=== PATIENT | male | born 1995 | race Caucasian/White ===

== ENCOUNTER 2019-10-11 18:45 | Emergency (ER) | payer MEDICAID, SELFPAY ==
[2019-10-11 18:53] VITALS: BP 146/86; PULSE 113; RESP 17; TEMP 38; O2SAT 99
[2019-10-11 19:36] VITALS: BP 147/68; PULSE 110; RESP 17; TEMP 37.2; O2SAT 99
--- NOTE | 2019-10-11 19:49 | W.ED.GENAD ---
Discharge Plan Disposition Patient Disposition: HOME Condition: Stable Discharge Details Chief Complaint: Cellulitis Clinical Impression: Cellulitis Primary Care Provider: None,None ED Provider: Bhavesh Yadav Home Meds and New Rx's Prescriptions: New sulfamethoxazole-trimethoprim [Bactrim DS] 800-160 mg tablet 1 tab PO BID Qty: 20 RF: 0 Discharge Instructions Instructions: Cellulitis (ED) Additional Instructions: Bactrim as directed. Rest, elevate, warm compresses every 2 hours for 20 minutes. You may use efua-xgj-osbzriu hydrocortisone cream as directed. Please watch for new or worsening symptoms and return to the ER for any concerns. [id number]-[id number] Tylenol and/or Motrin as directed for discomfort. Please contact your primary care provider tomorrow for reevaluation and 2-3 days. Stand Alone Forms: Work Release Discharge Data Discharge Date/Time-TO BE ENTERED AT DEPARTURE: 10/11/19 20:10 Medical Decision Making 24-year-old male reporting insect bite yesterday presents anxious concerned of potential infection. He appears well, nontoxic. Initial temperature taken was 38.0, repeat was 37.2 without any antipyretics. Mild tachycardia of 102. No evidence of calf pain or swelling, low suspicion for DVT. Patient is morbidly obese. At this time he is without chills, rigors, lymphangitic streaking. There is a small lesion behind his left knee that very well may be a localized insect bite reaction however given his fever I do believe that treating with antibiotics is reasonable. We will initiate Bactrim therapy, first dose to be given now. Given his hiking, insect bite, and now symptoms, I do not believe that testing for Covid is prudent. We discussed the importance of resting, elevation, cool and/or warm compresses. [id number] Tylenol and/or Motrin and take Bactrim as directed. He is requesting a work note for tomorrow. No additional questions or concerns, comfortable discharge. Upon discharge she appears well, nontoxic, less anxious and ambulate steadily. HPI General Mode of arrival: ambulatory. Date/Time Provider Initiated Documentation: 10/11/19 18:58. Limitations to Documentation: no limitations. Information obtained by: patient. HPI Narrative: 24-year-old male with history of anxiety, obesity, presents for evaluation concerning insect bite. He reports that he went hiking yesterday, noticed an insect bite behind his left knee. He never saw a tick. The area is red, warm, uncomfortable. He reports earlier today general malaise, fever of 102, did not take any antipyretics. He reports that those feelings have resolved on their own and now he does has mild discomfort at the site of the insect bite. He has not taken any zqio-xag-htigbud medication for her symptoms. He reports that he has a family member who is a nurse and they are concerned that he may have developed cellulitis. He is concerned that the rash may be secondary to COVID. He denies any known COVID positive exposure, shortness of breath, cough, chest pain. Denies pain or swelling in his calf. Related Data Home Medications Medication Instructions Recorded Confirmed sulfamethoxazole-trimethoprim 1 tab PO BID #20 tab 10/11/19 [Bactrim DS] Previous Rx's Medication Instructions Recorded sulfamethoxazole-trimethoprim 1 tab PO BID #20 tab 10/11/19 [Bactrim DS] Allergies Allergy/AdvReac Type Severity Reaction Status Date / Time No Known Allergies Allergy Unverified 10/11/19 18:57 General Stated Complaint: Cellulitis XIMENA: 4 Review of Systems Constitutional Constitutional: Reports fever(s) and Denies weakness Cardiovascular Cardiovascular: Denies chest pain and Denies dyspnea Respiratory Respiratory: Denies cough, Denies dyspnea and Denies wheezing Gastrointestinal Gastrointestinal: Denies nausea and Denies vomiting Musculoskeletal Musculoskeletal: Denies back pain, Denies numbness and Denies tingling Integumentary/Breasts Skin/Breast: Reports rash Neurologic Neurologic: Denies numbness, Denies tingling and Denies weakness Allergic/Immunologic Allergic/Immunologic: Denies wheezing [facility], [facility] Social History Smoking/Tobacco Use Status: Never Alcohol Intake: current Alcohol Intake frequency: holidays/special occasions only Alcohol type: beer Drug use: Never Substance use type: does not use Do you feel safe at home: Yes Do you feel safe in your relationship?: Yes Exam Const General: cooperative, healthy appearing, comfortable, no acute distress and anxious Orientation: alert, awake and oriented x3 HENMT Head: normal to inspection, normocephalic and atraumatic Mouth: moist mucous membranes Eyes Conjunctivae: conjunctivae normal Neck Neck: normal visual inspection, trachea midline and supple Resp Effort & Inspection: normal respiratory effort and able to speak in complete sentences Auscultation: clear to auscultation bilaterally Cardio Rate: tachycardic (Tachycardia 102) Rhythm: regular rhythm GI Inspection: obesity Palpation: soft and nontender Back/Spine/Pelvis Back: No back tenderness Skin General skin exam: no rashes or lesions noted Full body images: 1. There is a 3 cm circular erythematous, papular, warm, slightly indurated lesion. There is no fluctuance. There is no tenderness. There is no weeping. Centrally there appears to be a puncture wound or insect bite. There is no pallor. Easily blanchable. Neuro General: patient alert, patient awake, moves all extremities and no focal motor deficits Gait: normal gait Motor: muscle tone normal throughout and strength 5/5 throughout Sensory Exam: no sensory deficits noted Extrem Right upper extremity: normal to inspection, full ROM and normal capillary refill Left upper extremity: normal to inspection, full ROM and normal capillary refill Right lower extremity: normal to inspection, full ROM and normal capillary refill Psych Appearance: grossly normal Mental Status: mental status grossly normal Course Vital Signs Vital signs: Vital Signs Temperature 38.0 C H 10/11/19 18:53 Pulse 113 H 10/11/19 18:53 Respiratory Rate 17 10/11/19 18:53 Blood Pressure 146/86 H 10/11/19 18:53 Pulse Oximetry 99 10/11/19 18:53 Temperature 37.2 C 10/11/19 19:36 Temperature Source Temporal Artery Scan 10/11/19 18:53 Pulse 110 H 10/11/19 19:36 Respiratory Rate 17 10/11/19 19:36 Respiratory Effort 10/11/19 18:57 Blood Pressure 147/68 H 10/11/19 19:36 Pulse Oximetry 99 10/11/19 19:36 Oxygen Delivery Method Room Air 10/11/19 19:36 Oxygen Flow Rate 0 10/11/19 19:36 Pain Level 0 10/11/19 18:53
[2019-10-11 20:09] VITALS: BP 147/68; RESP 17; TEMP 37.2; O2SAT 99
--- NOTE | 2019-10-13 11:21 | PDOC.ERCMPRO ---
- If Service Date Differs Date of service: 10/13/19 Time of Service: 11:21 Care Management Progress Note Robles presents in the ED on 10/11/2019 for cellulitis. At the request of ED provider, CM coordinates referral to Dr. Aguirre, [facility], to assist Robles is obtaining a follow up appointment to his ED visit and in establishing care with a PCP.
== END 2019-10-11 20:10 | disposition home or self-care (01) ==
PROVIDERS: Emergency Provider Physician Assistant
DX: S80.262A Insect bite (nonvenomous), left knee, initial encounter (principal); L03.116 Cellulitis of left lower limb; W57.XXXA Bitten or stung by nonvenomous insect and other nonvenomous arthropods, initial encounter; R50.9 Fever, unspecified
CPT/HCPCS: 99283